=== PATIENT | male | born 1985 | race Caucasian/White ===

== ENCOUNTER 2021-12-20 13:11 | Emergency (ER) | payer MEDICAID, SELFPAY ==
[2021-12-20 13:34] VITALS: BP 119/91; PULSE 71; RESP 18; TEMP 36.5; O2SAT 100; BMI 19.3
--- NOTE | 2021-12-20 13:52 | CRLHL7_ITS ---
For Patients: As a result of the Century Cures Act, medical imaging exams and procedure reports are released immediately into your electronic medical record. You may view this report before your referring provider. If you have questions, please contact your health care provider. INDICATION: Right-sided chest pain. TECHNIQUE: Three-view study chest. FINDINGS: Normal size cardiac silhouette. Clear lung londono with no evidence of acute pneumonic infiltrates. No pneumothorax or pleural effusion. IMPRESSION: Negative chest. Dictated by Solo Andres MD @ 12/20/2021 2:54:05 PM (Electronically Signed)
--- NOTE | 2021-12-20 13:53 | ED_ITS ---
HPI - General Adult General Chief complaint: Rib Pain Stated complaint: Side Pain Poss Lung Infection Time Seen by Provider: 12/20/21 13:28 History of Present Illness HPI narrative: This 36-year-old male comes in reporting pain in his right lateral lower ribs. He had similar pain a couple months ago and had a workup with x-ray and labs which showed normal results. He went back into a different facility where an ultrasound was used to evaluate his pain. He was prescribed an antibiotic with the suspicion for an infection in his lung. He states that he got better after a couple weeks. He returns today because of recurrent pain that is reproducible with deep breath and palpating in his right lower ribs. 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 He also is currently homeless and sleeping in his car at night. Related Data Previous Rx's Medication Instructions Recorded ketorolac 10 mg tablet 10 mg PO Q8H 5 days #15 tabs 12/20/21 Allergies Allergy/AdvReac Type Severity Reaction Status Date / Time No Known Drug Allergies Allergy Verified 12/20/21 13:33 Review of Systems Status of ROS: Reports: 10 or more systems reviewed and unremarkable except as noted in History and below Narrative: Constitutional: No fevers, no weight gain or loss. Eyes: No discharge. No vision changes. HENT: No congestion, no sore throat, no ear pain. Cardiovascular: No palpitations. Respiratory: No shortness of breath, no wheezes, no cough. Chest: Pain in the right lower lateral ribs. Gastrointestinal: No abdominal pain, no vomiting, no diarrhea. Genitourinary: No dysuria, no hematuria. Musculoskeletal: Normal range of motion. Skin: No rashes, no pruritis. Neurological: No dizziness, weakness, sensory change, speech change. Endo/Heme/Allergies: No bruising or bleeding. No polydipsia. Pysch: no suicidality, no anxiety, no insomnia. All other systems reviewed and are negative. Exam Narrative: Exam Narrative: Constitutional: Well-developed, well-nourished, no acute distress. HEENT: Normocephalic, atraumatic. Neck: Normal range of motion. Nontender. Supple. Heart: Regular. No murmurs. Normal rate. Intact distal pulses. Lungs: Clear to auscultation. No wheezes, rhonchi, or rales. Chest: This patient manifests distinct pain when palpating on the ribs of the right lower chest wall. There is no external sign of injury or skin changes. Abdomen: Normal bowel sounds. Nontender. No rebound tenderness. Genitalia: Deferred. Back: No midline tenderness. Normal range of motion. Extremities: Normal range of motion. No injury. Skin: Intact. No rash. Warm. No erythema or pallor. Neurologic: No altered sensation. No weakness. Alert and oriented. Psychiatric: No suicidality. No anxiety or depression. No insomnia. Nursing notes and vitals signs are reviewed. Const: Vital Signs, click to edit/add: Vital Signs - 24 hr 12/20/21 13:34 Temperature 97.7 F Pulse Rate [Right Pulse Oximeter] 71 Respiratory Rate 18 Blood Pressure [Ri ght Upper Arm] 119/91 H Pulse Oximetry 100 Oxygen Delivery Me thod Room Air Course Vital Signs Vital signs: Initial Vital Signs Temperature 97.7 F 12/20/21 13:34 Temperature Source Temporal Artery Scan 12/20/21 13:34 Pulse Rate 71 12/20/21 13:34 Respiratory Rate 18 12/20/21 13:34 Blood Pressure 119/91 H 12/20/21 13:34 Blood Pressure Mean 100 12/20/21 13:34 Blood Pressure Position Sitting 12/20/21 13:34 Pulse Oximetry 100 12/20/21 13:34 Oxygen Delivery Method 12/20/21 13:34 Vital Signs Temperature 97.7 F 12/20/21 13:34 Pulse Rate 71 12/20/21 13:34 Respiratory Rate 18 12/20/21 13:34 Blood Pressure 119/91 H 12/20/21 13:34 Pulse Oximetry 100 12/20/21 13:34 Oxygen Delivery Method 12/20/21 13:34 Temperature 97.7 F 12/20/21 13:34 Pulse Rate 71 12/20/21 13:34 Respiratory Rate 18 12/20/21 13:34 Blood Pressure 119/91 H 12/20/21 13:34 Pulse Oximetry 100 12/20/21 13:34 Oxygen Delivery Method 12/20/21 13:34 Medical Decision Making MDM Narrative Medical decision making narrative: This patient comes in with pain in the right lower lateral ribs. This pain is reproducible with certain movements, when palpating in this area and when taking a deep breath. Chest x-ray shows no sign of infiltrate or other abnormality by my review. The patient did receive a rib belt and a prescription for Toradol. I also wrote return to work note. Discharge Plan Discharge Clinical Impression: Acute chest wall pain Patient Disposition: Home, Self-Care Condition: Stable Additional Instructions: Wear rib belt as needed. Take medication as needed and indicated. Follow up with MD or return if worsening. Prescriptions: New ketorolac 10 mg tablet 10 mg PO Q8H 5 Days Qty: 15 0RF Follow Up/Referrals: Provider,Not a Local [Primary Care Provider] - Stand Alone Forms: [employer] Info Instructions
== END 2021-12-20 15:03 | disposition home or self-care (01) ==
PROVIDERS: Emergency Provider Emergency Medicine Emergency Medical Services
DX: R07.89 Other chest pain (principal)
CPT/HCPCS: 71046; 99283; 99284

== ENCOUNTER 2022-03-10 16:04 | Emergency (ER) | payer OTHER, MEDICAID, SELFPAY ==
[2022-03-10 16:18] VITALS: BP 119/69; PULSE 92; RESP 20; O2SAT 100; BMI 19.4
[2022-03-10 16:30] VITALS: PULSE 85; RESP 16; TEMP 36.6; O2SAT 100
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
== END 2022-03-10 18:10 | disposition left against medical advice (07) ==
LOC: ED 18:00
PROVIDERS: Emergency Provider Family Medicine
DX: F07.81 Postconcussional syndrome (principal)
CPT/HCPCS: 70450; 99283